=== PATIENT | male | born 1985 | race Caucasian/White ===

== ENCOUNTER 2016-10-12 01:44 | Inpatient (IN) | payer OTHER ==
--- NOTE | 2016-10-12 01:54 | HP ---
COWS - Scale Resting Pulse: 1= [place] 81-100 Sweatin=Flushed/Facial Moisture Restless Observation: 5= Unable to Sit Still Pupil Size: 0= Normal to Room Light Bone or Joint Aches: 4=Acute Joint/Muscle Pain Runny Nose/ Eye Tearin= Runny Nose/Eyes GI Upset > 30mins: 0= None Tremor Observation: 1= Tremor [place], Not Seen Yawning Observation: 1= 1-2x During Session Anxiety or Irritability: 1=Feels Anxious/Irritable Goose Flesh Skin: 0=Smooth Skin COWS Score: 17 Admission ROS S - HPI Chief Complaint: SEEKING DETOX TXMENT FOR HEROIN ADDICTION Allergies/Adverse Reactions: Allergies Allergy/AdvReac Type Severity Reaction Status Date / Time nut - unspecified Allergy Verified 10/12/16 01:49 shellfish derived Allergy Verified 10/12/16 01:49 fruit Allergy Uncoded 10/12/16 01:49 History of Present Illness: Y.O. MALE WITH OPIOID DEPENDENCE ADMITTED FOR DETOX TXMENT. THIS IS CLIENTS FIRST TIME HERE. REPORTS LAST DETOX A YEAR AGO. REPORTS A HISTORY OF BEING CLEAN 60 DAYS WHILE IN REHAB. UTOX + BZO PT DENIES USE. Exam Limitations: No Limitations - Ebola screening Have you traveled outside of the country in the last 21 days: No Have you had contact with anyone from an Ebola affected area: No Have you been sick,other than usual withdrawal symptoms: No Do you have a fever: No - Review of Systems Constitutional: Chills, Loss of Appetite, Malaise, Night Sweats, Changes in sleep EENT: reports: No Symptoms Reported Respiratory: reports: No Symptoms reported Cardiac: reports: No Symptoms Reported GI: reports: Diarrhea, Vomiting : reports: No Symptoms Reported Musculoskeletal: reports: Back Pain, Joint Pain Integumentary: reports: No Symptoms Reported Neuro: reports: No Symptoms reported Endocrine: reports: No Symptoms Reported Hematology: reports: No Symptoms Reported Psychiatric: reports: No Sypmtoms Reported Other Systems: Reviewed and Negative Patient History - Patient Medical History Hx Anemia: No Hx Asthma: Yes (CHILDHOOD) Hx Chronic Obstructive Pulmonary Disease (COPD): No Hx Cancer: No Hx Cardiac Disorders: No Hx Congestive Heart Failure: No Hx Hypertension: No Hx Hypercholesterolemia: No Hx Pacemaker: No HX Cerebrovascular Accident: No Hx Seizures: No Hx Dementia: No Hx Diabetes: No Hx Gastrointestinal Disorders: No Hx Liver Disease: No Hx Genitourinary Disorders: No Hx Sexually Transmitted Disorders: No Hx Renal Disease (ESRD): No Hx Thyroid Disease: Yes (H/O NOT SURE IF HYPO/HYPER STATES NOW RESOLVED) Hx Human Immunodeficiency Virus (HIV): No Hx Hepatitis C: No Hx Depression: No Hx Suicide Attempt: No Hx Bipolar Disorder: No Hx Schizophrenia: No Other Medical History: DENIES - Patient Surgical History Past Surgical History: No - PPD History Previous Implant?: Yes Documented Results: Negative w/o proof Implanted On Prior [facility] Admission?: No PPD to be Administered?: Yes - Smoking Cessation Smoking history: Current every day smoker Have you smoked in the past 12 months: Yes Aproximately how many cigarettes per day: 20 Cigars Per Day: 0 Hx Chewing Tobacco Use: No Initiated information on smoking cessation: Yes 'Breaking Loose' booklet given: 10/12/16 - Substance & Tx. History Hx Alcohol Use: No Hx Substance Use: Yes Substance Use Type: Heroin Hx Substance Use Treatment: Yes ([facility] - Substances Abused HEROIN Route: Injection Frequency: Daily Amount used: 10 BAGS Age of first use: 26 Date of Last Use: 10/11/16 Family Disease History - Family Disease History Family Disease History: Other: Brother (DRUG /ALCOHOL ABUSE) Admission Physical Exam [facility] - Physical General Appearance: Yes: Appropriately Dressed, Mild Distress, Other (PERIODS OF DROWSINESS) HEENTM: Yes: EOMI, Normal ENT Inspection, Normocephalic, Normal Voice, MACR[place], Pharynx Normal Respiratory: Yes: Chest Non-Tender, Lungs Clear, Normal Breath Sounds, No Respiratory Distress, No Accessory Muscle Use Neck: Yes: No masses,lesions,Nodules, Supple, Trachea in good position Breast: Yes: Breast Exam Deferred Cardiology: Yes: Regular Rhythm, Regular Rate, S1, S2 Abdominal: Yes: Normal Bowel Sounds, Non Tender, Flat, Soft Genitourinary: Yes: Within Normal Limits Back: Yes: Normal Inspection Musculoskeletal: Yes: full range of Motion, Gait Steady Extremities: Yes: Normal Capillary Refill, Normal Range of Motion, Non-Tender, Tremors Neurological: Yes: infusion rn II-XII NML intact, Fully Oriented, Alert, Motor Strength 5/5 Integumentary: Yes: Dry, Warm, Track [place] Lymphatic: Yes: Within Normal Limits - Diagnostic (1) Nicotine dependence Current Visit: Yes Status: Acute (2) Uncomplicated opioid dependence Current Visit: Yes Status: Chronic Cleared for Admission [facility] - Detox or Rehab [facility] Level of Care: Medically Managed Detox Regimen/Protocol: Methadone S Breath Alcohol Content Breath Alcohol Content: 0 Vital Signs - Vital Signs Vital Signs Refused: No Temperature: 96.4 F Temperature Source: Oral Pulse Rate: 84 Respiratory Rate: 20 Blood Pressure: 96/48 BP Location: Left Arm Blood Pressure Position: Sitting - Height Height: 5 ft 3 in - Weight Weight: 62.596 kg Weight Measurement Method: Standing Scale Body Mass Index (BMI): 24.4 Urine Drug Screen - Test Device Lot Number: [id number] Expiration Date: 07/13/18 - Control Is Test Valid: Yes - Results Drug Screen Negative: No Urine Drug Screen Results: OPI-Opiates, BZO-Benzodiazepines
[2016-10-12 02:04] VITALS: BMI 24.4
[2016-10-12] MEDS ORDERED: P-EPHED 60MG/TRIPROLIDI 2.5MG TABLET PO PRN (02:07)
[2016-10-12] MEDS ORDERED: MAGNESIUM HYDROX 2400MG/30ML ORAL SUSPENSION 30 ML CUP PO PRN (02:07)
[2016-10-12] MEDS ORDERED: guaiFENesin/D-METHORPHAN HB 10 ML UNIT-DOSE CUPS PO PRN (02:07)
[2016-10-12] MEDS ORDERED: LOPERAMIDE HCL 2 MG CAPSULE PO PRN (02:07)
[2016-10-12] MEDS ORDERED: diphenhydrAMINE HCL 50 MG CAPSULE PO PRN (02:07)
[2016-10-12] MEDS ORDERED: MENTHOL/PHENOL 1 EACH UD MM PRN (02:07)
[2016-10-12] MEDS ORDERED: ACETAMINOPHEN 325 MG TABLET (FP) PO PRN (02:07)
[2016-10-12] MEDS ORDERED: METHADONE HCL 10 MG TABLET (FOR DETOX USE ONLY) PO ONE ×3 (02:07→23:00)
[2016-10-12] MEDS ORDERED: MAG HYDROX/AL HYDROX/SIMETH 30 ML UNIT-DOSE CUP PO PRN (02:07)
[2016-10-12] MEDS ORDERED: MAGNESIUM CITRATE 300 ML BOTTLE PO PRN (02:07)
[2016-10-12] MEDS ORDERED: IBUPROFEN 400 MG TABLET (FP) PO PRN (02:07)
[2016-10-12 10:08] LABS: MCH 30.5 pg (25.7-33.7); MCHC 34.3 g/dl (32.0-35.9); MEAN CELL VOLUME 88.9 fl (80-96); MEAN PLT VOLUME 9.7 fl (7.5-11.1); PLATELET COUNT 142 K/MM3 (134-434); RDW 13.2 % (11.9-15.9); WHITE BLOOD COUNT 5.9 K/mm3 (4.0-10.0)
[2016-10-12] MEDS: PRENATAL VITAMINS W/ FOLIC ACID TABLET (FP) PO SCH (10:14)
[2016-10-12] MEDS: NICOTINE 21 MG/24 HOURS TOPICAL PATCH TD SCH (10:15)
[2016-10-12 10:31] LABS: ALBUMIN 3.6 g/dl (3.4-5.0); ALK PHOS 74 U/L (45-117); ANION GAP 10 (8-16); BILIRUBIN,TOTAL 0.5 mg/dL (0.2-1.0); CALCIUM 8.4 mg/dL (8.5-10.1); CO2 25 mmol/L (21-32); COCKROFT - GAULT 105.29; CREATININE 0.9 mg/dL (0.7-1.3); GLUCOSE,RANDOM 118 mg/dL (74-106); SGOT/AST 18 U/L (15-37); SGPT/ALT 20 U/L (12-78); TOT PROT 6.1 g/dl (6.4-8.2)
--- NOTE | 2016-10-12 10:31 | PN ---
[facility] COWS - Scale Resting Pulse: 0= [place] 80 or Below Sweatin=Flushed/Facial Moisture Restless Observation: 1= Difficult to Sit Still Pupil Size: 1= Pupils >than Normal Bone or Joint Aches: 1= Mild Discomfort Runny Nose/ Eye Tearin= Nasal Congestion GI Upset > 30mins: 1= Stomach Cramp Tremor Observation of Outstretched Hands: 1= Tremor [place], Not Seen Yawning Observation: 1= 1-2x During Session Anxiety or Irritability: 1=Feels Anxious/Irritable Goose Flesh Skin: 0=Smooth Skin COWS Score: 10 [facility] Progress Note (SOAP) Subjective: interrupted sleep, sweats, Objective: 10/12/16 10:26 Vital Signs Temperature 97.7 F 10/12/16 09:49 Pulse Rate 75 10/12/16 09:49 Respiratory Rate 18 10/12/16 09:49 Blood Pressure 90/54 10/12/16 09:49 O2 Sat by Pulse Oximetry (%) Laboratory Tests 10/12/16 07:00 WBC 5.9 RBC 4.01 Hgb 12.2 Hct 35.7 MCV 88.9 MCHC 34.3 RDW 13.2 Plt Count 142 MPV 9.7 pending labs pt aox3 in ambulating Assessment: 10/12/16 10:31 withdrawal sx's Plan: cont. detox increase fluids
[2016-10-12] MEDS: THIAMINE HCL 100 MG TABLET (FP) PO SCH (22:45)
[2016-10-12] MEDS: diazePAM 5 MG TABLET PO PRN (22:45)
--- NOTE | 2016-10-12 23:07 | EKG ---
Test Reason : Blood Pressure : / mmHG Vent. Rate : 069 BPM Atrial Rate : 069 BPM P-R Int : 204 ms QRS Dur : 100 ms QT Int : 410 ms P-R-T Axes : 049 060 033 degrees QTc Int : 439 ms NORMAL SINUS RHYTHM NORMAL ECG NO PREVIOUS ECGS AVAILABLE Confirmed by NATALIA MAYER MD ([id number]) on 10/12/2016 11:06:48 PM Referred By: Confirmed By:NATALIA MAYER MD
[2016-10-13] MEDS ORDERED: METHADONE HCL 10 MG TABLET (FOR DETOX USE ONLY) PO ONE (10:00)
--- NOTE | 2016-10-13 10:04 | PN ---
[facility] COWS - Scale Resting Pulse: 0= [place] 80 or Below Sweatin=Flushed/Facial Moisture Restless Observation: 1= Difficult to Sit Still Pupil Size: 0= Normal to Room Light Bone or Joint Aches: 1= Mild Discomfort Runny Nose/ Eye Tearin= Runny Nose/Eyes GI Upset > 30mins: 0= None Tremor Observation of Outstretched Hands: 2= Slight Tremor Visible Yawning Observation: 1= 1-2x During Session Anxiety or Irritability: 2=Irritable/Anxious Goose Flesh Skin: 0=Smooth Skin COWS Score: 11 [facility] Progress Note (SOAP) Subjective: agitation sweats interrupted sleep irritable Objective: 10/13/16 09:57 Vital Signs Temperature 97.9 F 10/13/16 09:49 Pulse Rate 75 10/13/16 09:49 Respiratory Rate 18 10/13/16 09:49 Blood Pressure 122/66 10/13/16 09:49 O2 Sat by Pulse Oximetry (%) Laboratory Tests 10/12/16 10/12/16 10/12/16 07:00 07:00 07:00 WBC 5.9 RBC 4.01 Hgb 12.2 Hct 35.7 MCV 88.9 MCHC 34.3 RDW 13.2 Plt Count 142 MPV 9.7 Sodium 140 Potassium 3.2 L Chloride 105 Carbon Dioxide 25 Anion Gap 10 BUN 21 H Creatinine 0.9 Creat Clearance w eGFR > 60 Random Glucose 118 H Calcium 8.4 L Total Bilirubin 0.5 AST 18 ALT 20 Alkaline Phosphatase 74 Total Protein 6.1 L Albumin 3.6 RPR Titer Hepatitis C Antibody <0.1 10/12/16 07:00 WBC RBC Hgb Hct MCV MCHC RDW Plt Count MPV Sodium Potassium Chloride Carbon Dioxide Anion Gap BUN Creatinine Creat Clearance w eGFR Random Glucose Calcium Total Bilirubin AST ALT Alkaline Phosphatase Total Protein Albumin RPR Titer Nonreactive Hepatitis C Antibody potassium 3.2; k-dur [id number] ordered awake/alert ambulating no acute distress Assessment: 10/13/16 10:05 withdrawal sx Plan: continue detox increase fluids u/a pending
[2016-10-13] MEDS: PRENATAL VITAMINS W/ FOLIC ACID TABLET (FP) PO SCH (10:05)
[2016-10-13] MEDS: diazePAM 5 MG TABLET PO PRN ×3 (10:06→22:51)
[2016-10-13] MEDS: POTASSIUM CHLORIDE TABS 20 MEQ TABLET.ER (FP) PO SCH (10:07)
[2016-10-13] MEDS: NICOTINE 21 MG/24 HOURS TOPICAL PATCH TD SCH ×2 (10:07→12:17)
[2016-10-13] MEDS: NICOTINE POLACRILEX 2 MG GUM BC PRN (12:18)
[2016-10-13 14:17] LABS: URINE APPEARANCE CLEAR; URINE BILIRUBIN NEGATIVE (NEGATIVE); URINE BLOOD NEGATIVE (NEGATIVE); URINE COLOR STRAW; URINE GLUCOSE (UA) NEGATIVE (NEGATIVE); URINE KETONE NEGATIVE (NEGATIVE); URINE LEUK ESTERASE NEGATIVE (NEGATIVE); URINE NITRITE NEGATIVE (NEGATIVE); URINE PROTEIN NEGATIVE (NEGATIVE); URINE UROBILINOGEN NEGATIVE E.U./dl (0.2-1.0)
--- NOTE | 2016-10-13 17:47 | PN ---
[facility] Progress Note Note: Psychiatry Attending's job specification writer note : Asked to address this patient's complaint of insomnia. Chart reviewed.Met briefly with this patient. Unremarkable mental status.Detox progressing well. No medical complaints. Intervention : Ambien 10 mg po hs. Patient made aware of potential for parasomnias. He agrees with this plan of care. No scripts at discharge.
[2016-10-13] MEDS: ZOLPIDEM TARTRATE 10 MG TABLET (PARK CARE ONLY) PO PRN (22:51)
[2016-10-13] MEDS: THIAMINE HCL 100 MG TABLET (FP) PO SCH (22:51)
[2016-10-14] MEDS: diazePAM 5 MG TABLET PO PRN ×4 (05:15→22:37)
--- NOTE | 2016-10-14 09:09 | PN ---
[facility] Progress Note (SOAP) Subjective: sweats, shakes Objective: 10/14/16 09:08 Vital Signs Temperature 97.5 F L 10/14/16 06:00 Pulse Rate 64 10/14/16 06:00 Respiratory Rate 16 10/14/16 06:00 Blood Pressure 124/70 10/14/16 06:00 O2 Sat by Pulse Oximetry (%) Laboratory Tests 10/12/16 10/12/16 10/12/16 07:00 07:00 07:00 WBC 5.9 RBC 4.01 Hgb 12.2 Hct 35.7 MCV 88.9 MCHC 34.3 RDW 13.2 Plt Count 142 MPV 9.7 Sodium 140 Potassium 3.2 L Chloride 105 Carbon Dioxide 25 Anion Gap 10 BUN 21 H Creatinine 0.9 Creat Clearance w eGFR > 60 Random Glucose 118 H Calcium 8.4 L Total Bilirubin 0.5 AST 18 ALT 20 Alkaline Phosphatase 74 Total Protein 6.1 L Albumin 3.6 Urine Color Urine Appearance Urine pH Ur Specific [place] Urine Protein Urine Glucose (UA) Urine Ketones Urine Blood Urine Nitrite Urine Bilirubin Urine Urobilinogen Ur Leukocyte Esterase RPR Titer Hepatitis C Antibody <0.1 10/12/16 10/13/16 07:00 12:50 WBC RBC Hgb Hct MCV MCHC RDW Plt Count MPV Sodium Potassium Chloride Carbon Dioxide Anion Gap BUN Creatinine Creat Clearance w eGFR Random Glucose Calcium Total Bilirubin AST ALT Alkaline Phosphatase Total Protein Albumin Urine Color Straw Urine Appearance Clear Urine pH 6.0 Ur Specific [place] 1.010 Urine Protein Negative Urine Glucose (UA) Negative Urine Ketones Negative Urine Blood Negative Urine Nitrite Negative Urine Bilirubin Negative Urine Urobilinogen Negative Ur Leukocyte Esterase Negative RPR Titer Nonreactive Hepatitis C Antibody 10/14/16 09:50 pt aox3 in nad , ambulating Assessment: 10/14/16 09:08 withdrawal sx's 10/14/16 09:51 Plan: cont. detox increase fluids
[2016-10-14] MEDS ORDERED: METHADONE HCL 5 MG TABLET (FOR DETOX USE ONLY) PO ONE (10:00)
[2016-10-14] MEDS: PRENATAL VITAMINS W/ FOLIC ACID TABLET (FP) PO SCH (10:05)
[2016-10-14] MEDS: POTASSIUM CHLORIDE TABS 20 MEQ TABLET.ER (FP) PO SCH (10:05)
[2016-10-14] MEDS: NICOTINE 21 MG/24 HOURS TOPICAL PATCH TD SCH (10:06)
[2016-10-14] MEDS: NICOTINE POLACRILEX 2 MG GUM BC PRN (10:09)
[2016-10-14] MEDS: ZOLPIDEM TARTRATE 10 MG TABLET (PARK CARE ONLY) PO PRN (22:37)
[2016-10-14] MEDS: THIAMINE HCL 100 MG TABLET (FP) PO SCH (22:37)
[2016-10-15] MEDS ORDERED: METHADONE HCL 5 MG TABLET (FOR DETOX USE ONLY) PO ONE (10:00)
[2016-10-15] MEDS: PRENATAL VITAMINS W/ FOLIC ACID TABLET (FP) PO SCH (10:07)
[2016-10-15] MEDS: NICOTINE 21 MG/24 HOURS TOPICAL PATCH TD SCH (10:07)
[2016-10-15] MEDS: POTASSIUM CHLORIDE TABS 20 MEQ TABLET.ER (FP) PO SCH (10:07)
--- NOTE | 2016-10-15 10:44 | PN ---
[facility] Progress Note (SOAP) Subjective: sweats interrupted sleep anxious Objective: 10/15/16 10:43 Vital Signs Temperature 97.5 F L 10/15/16 06:38 Pulse Rate 62 10/15/16 06:38 Respiratory Rate 18 10/15/16 06:38 Blood Pressure 109/56 10/15/16 06:38 O2 Sat by Pulse Oximetry (%) awake/alert ambulating no acute distress Assessment: 10/15/16 10:43 withdrawal sx Plan: continue detox increase fluids
[2016-10-15] MEDS: hydrOXYzine PAMOATE 50 MG CAPSULE (FP) PO PRN ×3 (13:24→23:06)
[2016-10-15] MEDS: NICOTINE POLACRILEX 2 MG GUM BC PRN (13:24)
[2016-10-15] MEDS: THIAMINE HCL 100 MG TABLET (FP) PO SCH (23:06)
[2016-10-15] MEDS: ZOLPIDEM TARTRATE 10 MG TABLET (PARK CARE ONLY) PO SCH (23:06)
[2016-10-16] MEDS ORDERED: METHADONE HCL 10 MG TABLET (FOR DETOX USE ONLY) PO ONE (10:00)
[2016-10-16] MEDS: PRENATAL VITAMINS W/ FOLIC ACID TABLET (FP) PO SCH (10:17)
[2016-10-16] MEDS: NICOTINE 21 MG/24 HOURS TOPICAL PATCH TD SCH (10:18)
[2016-10-16] MEDS: POTASSIUM CHLORIDE TABS 20 MEQ TABLET.ER (FP) PO SCH (10:18)
[2016-10-16] MEDS: hydrOXYzine PAMOATE 50 MG CAPSULE (FP) PO PRN ×3 (10:19→22:06)
[2016-10-16] MEDS: NICOTINE POLACRILEX 2 MG GUM BC PRN (13:14)
--- NOTE | 2016-10-16 13:19 | PN ---
[facility] Progress Note (SOAP) Subjective: sweats, shakes, interrupted sleep Objective: 10/16/16 13:18 Vital Signs - 8 hr 10/16/16 10/16/16 06:00 10:46 Temperature 97.7 F 97.9 F Pulse Rate 65 96 H Respiratory 16 16 Rate Blood Pressure 113/64 129/76 Laboratory Last Values WBC 5.9 K/mm3 (4.0-10.0) 10/12/16 07:00 RBC 4.01 M/mm3 (4.00-5.60) 10/12/16 07:00 Hgb 12.2 GM/dL (11.7-16.9) 10/12/16 07:00 Hct 35.7 % (35.4-49) 10/12/16 07:00 MCV 88.9 fl (80-96) 10/12/16 07:00 MCHC 34.3 g/dl (32.0-35.9) 10/12/16 07:00 RDW 13.2 % (11.9-15.9) 10/12/16 07:00 Plt Count 142 K/MM3 (134-434) 10/12/16 07:00 MPV 9.7 fl (7.5-11.1) 10/12/16 07:00 Sodium 140 mmol/L (136-145) 10/12/16 07:00 Potassium 3.2 mmol/L (3.5-5.1) L 10/12/16 07:00 Chloride 105 mmol/L (98-107) 10/12/16 07:00 Carbon Dioxide 25 mmol/L (21-32) 10/12/16 07:00 Anion Gap 10 (8-16) 10/12/16 07:00 BUN 21 mg/dL (7-18) H 10/12/16 07:00 Creatinine 0.9 mg/dL (0.7-1.3) 10/12/16 07:00 Creat Clearance w eGFR > 60 (>60) 10/12/16 07:00 Random Glucose 118 mg/dL (74-106) H 10/12/16 07:00 Calcium 8.4 mg/dL (8.5-10.1) L 10/12/16 07:00 Total Bilirubin 0.5 mg/dL (0.2-1.0) 10/12/16 07:00 AST 18 U/L (15-37) 10/12/16 07:00 ALT 20 U/L (12-78) 10/12/16 07:00 Alkaline Phosphatase 74 U/L (45-117) 10/12/16 07:00 Total Protein 6.1 g/dl (6.4-8.2) L 10/12/16 07:00 Albumin 3.6 g/dl (3.4-5.0) 10/12/16 07:00 Urine Color Straw 10/13/16 12:50 Urine Appearance Clear 10/13/16 12:50 Urine pH 6.0 (5.0-8.0) 10/13/16 12:50 Ur Specific [place] 1.010 (1.001-1.035) 10/13/16 12:50 Urine Protein Negative (NEGATIVE) 10/13/16 12:50 Urine Glucose (UA) Negative (NEGATIVE) 10/13/16 12:50 Urine Ketones Negative (NEGATIVE) 10/13/16 12:50 Urine Blood Negative (NEGATIVE) 10/13/16 12:50 Urine Nitrite Negative (NEGATIVE) 10/13/16 12:50 Urine Bilirubin Negative (NEGATIVE) 10/13/16 12:50 Urine Urobilinogen Negative E.U./dl (0.2-1.0) 10/13/16 12:50 Ur Leukocyte Esterase Negative (NEGATIVE) 10/13/16 12:50 RPR Titer Nonreactive (NONREACTIVE) 10/12/16 07:00 Hepatitis C Antibody <0.1 s/co ratio (0.0-0.9) 10/12/16 07:00 labs noted Assessment: 10/16/16 13:18 withdrawal sx Plan: continue detox
[2016-10-16] MEDS: ZOLPIDEM TARTRATE 10 MG TABLET (PARK CARE ONLY) PO SCH (22:05)
[2016-10-16] MEDS: THIAMINE HCL 100 MG TABLET (FP) PO SCH (22:05)
[2016-10-17] MEDS ORDERED: METHADONE HCL 5 MG TABLET (FOR DETOX USE ONLY) PO ONE (06:00)
[2016-10-17] MEDS: POTASSIUM CHLORIDE TABS 20 MEQ TABLET.ER (FP) PO SCH (09:09)
[2016-10-17 09:45] VITALS: BP 110/57; PULSE 94; TEMP 98.6
--- NOTE | 2016-10-17 09:53 | DS ---
[facility] Detox Discharge Summary Admission Date: 10/12/16 Discharge Date: 10/17/16 - History Present History: Opioid Dependence Pertinent Past History: denies - Physical Exam Results Vital Signs: Vital Signs Temperature 98.6 F 10/17/16 09:45 Pulse Rate 94 H 10/17/16 09:45 Respiratory Rate 18 10/17/16 09:45 Blood Pressure 110/57 10/17/16 09:45 O2 Sat by Pulse Oximetry (%) Pertinent Admission Physical Exam Findings: Withdrawal sx. Laboratory Last Values WBC 5.9 K/mm3 (4.0-10.0) 10/12/16 07:00 RBC 4.01 M/mm3 (4.00-5.60) 10/12/16 07:00 Hgb 12.2 GM/dL (11.7-16.9) 10/12/16 07:00 Hct 35.7 % (35.4-49) 10/12/16 07:00 MCV 88.9 fl (80-96) 10/12/16 07:00 MCHC 34.3 g/dl (32.0-35.9) 10/12/16 07:00 RDW 13.2 % (11.9-15.9) 10/12/16 07:00 Plt Count 142 K/MM3 (134-434) 10/12/16 07:00 MPV 9.7 fl (7.5-11.1) 10/12/16 07:00 Sodium 140 mmol/L (136-145) 10/12/16 07:00 Potassium 3.2 mmol/L (3.5-5.1) L 10/12/16 07:00 Chloride 105 mmol/L (98-107) 10/12/16 07:00 Carbon Dioxide 25 mmol/L (21-32) 10/12/16 07:00 Anion Gap 10 (8-16) 10/12/16 07:00 BUN 21 mg/dL (7-18) H 10/12/16 07:00 Creatinine 0.9 mg/dL (0.7-1.3) 10/12/16 07:00 Creat Clearance w eGFR > 60 (>60) 10/12/16 07:00 Random Glucose 118 mg/dL (74-106) H 10/12/16 07:00 Calcium 8.4 mg/dL (8.5-10.1) L 10/12/16 07:00 Total Bilirubin 0.5 mg/dL (0.2-1.0) 10/12/16 07:00 AST 18 U/L (15-37) 10/12/16 07:00 ALT 20 U/L (12-78) 10/12/16 07:00 Alkaline Phosphatase 74 U/L (45-117) 10/12/16 07:00 Total Protein 6.1 g/dl (6.4-8.2) L 10/12/16 07:00 Albumin 3.6 g/dl (3.4-5.0) 10/12/16 07:00 Urine Color Straw 10/13/16 12:50 Urine Appearance Clear 10/13/16 12:50 Urine pH 6.0 (5.0-8.0) 10/13/16 12:50 Ur Specific [place] 1.010 (1.001-1.035) 10/13/16 12:50 Urine Protein Negative (NEGATIVE) 10/13/16 12:50 Urine Glucose (UA) Negative (NEGATIVE) 10/13/16 12:50 Urine Ketones Negative (NEGATIVE) 10/13/16 12:50 Urine Blood Negative (NEGATIVE) 10/13/16 12:50 Urine Nitrite Negative (NEGATIVE) 10/13/16 12:50 Urine Bilirubin Negative (NEGATIVE) 10/13/16 12:50 Urine Urobilinogen Negative E.U./dl (0.2-1.0) 10/13/16 12:50 Ur Leukocyte Esterase Negative (NEGATIVE) 10/13/16 12:50 RPR Titer Nonreactive (NONREACTIVE) 10/12/16 07:00 Hepatitis C Antibody <0.1 s/co ratio (0.0-0.9) 10/12/16 07:00 labs noted,K+ replacement given - Treatment Hospital Course: Detox Protocol Followed, Detoxed Safely, Responded well, Discharged Condition Good, Rehab Referral Accepted Patient has Accepted a Rehab Referral to: [facility] - Medication Discharge Medications: Ambulatory Orders NK [No Known Home Medication] 10/12/16 - Diagnosis (1) Nicotine dependence Current Visit: Yes Status: Acute (2) Uncomplicated opioid dependence Current Visit: Yes Status: Chronic - AMA Did Patient Leave Against Medical Advice: No
== END 2016-10-17 09:11 | disposition home or self-care (01) | DRG 773 ==
LOC: YASAS 01:44 → Y6N 01:51
PROVIDERS: ADMIT Internal Medicine Addiction Medicine; ATTEND Internal Medicine
PROC: HZ2ZZZZ Detoxification Services for Substance Abuse Treatment (ICD-10-PCS; principal; 2016-10-12)
DX: F11.23 Opioid dependence with withdrawal (principal); F17.210 Nicotine dependence, cigarettes, uncomplicated; Z87.09 Personal history of other diseases of the respiratory system
CPT/HCPCS: 36415; 80053; 81003; 85027; 86593; 93005; 93010